=== PATIENT | female | born 1965 | race Caucasian/White ===

== ENCOUNTER 2022-03-21 12:29 | Outpatient (CLI) | payer BC, SELFPAY ==
--- NOTE | 2022-03-28 11:14 | P.SLS_ITS ---
Sleep Study Details Details Interpreting Provider: Vicente Argueta MD Date of Sleep Study: 03/21/22 Sleep Study Details: STUDY TYPE:? home sleep study ? BMI:? [] ORDERING PROVIDER:? Kendall INDICATION:? concerns about sleep apnea ? SLEEP SUMMARY:? monitor time 522 minute RESPIRATORY SUMMARY:? AHI overall 6.4, supine 40.4, prone 3.1, left lateral 8.5, right lateral 2.3, Low oxygen was 90% snores summary 11.8% PERIODIC LIMB MOVEMENTS OF SLEEP:? not applicable CARDIAC:? range 44 to 105, mean 54.9. IMPRESSION:? Mild obstructive sleep apnea overall. Worse in the supine and l eft lateral position. RECOMMENDATION: Treatment options include AutoSet CPAP at pressure of 4-17, dental appliance, and/or airway expansion surgery.
== END 2022-03-21 12:30 | disposition home or self-care (01) ==
LOC: SLEEP 12:31
PROVIDERS: PCP Family Medicine; Visit Provider Otolaryngology
DX: G47.33 Obstructive sleep apnea (adult) (pediatric) (principal)
CPT/HCPCS: 95806

== ENCOUNTER 2023-01-23 08:58 | Outpatient (CLI) | payer BC, SELFPAY ==
--- NOTE | 2023-01-23 09:15 | CRLHL7_ITS ---
For Patients: As a result of the Century Cures Act, medical imaging exams and procedure reports are released immediately into your electronic medical record. You may view this report before your referring provider. If you have questions, please contact your health care provider. BILATERAL SCREENING MAMMOGRAM WITH COMPUTER-AIDED DETECTION AND TOMOSYNTHESIS TECHNIQUE: CC and MLO views were obtained. These mammographic images have been obtained using full-field digital technique. These mammographic images were interpreted with the benefit of computer-aided detection. Breast tomosynthesis was used in this interpretation. COMPARISON FILM: 05/22/2018, 11/25/2020, 01/03/2022. FINDINGS: There are scattered areas of fibroglandular density. IMPRESSION: There is no radiographic evidence for malignancy. ASSESSMENT: BI-RADS Category 1: Negative RECOMMENDATION: Routine screening mammogram in 1 year. A lay language report of this examination will be provided to the patient. GREYSON ABREU M.D. Diagnostic Radiologist [email or web address] Transcribed: 3:[address]/Dictated by: Greyson Abreu MD @ 01/23/2023 12:16:00 PM (Electronically Signed)
== END 2023-01-23 08:59 | disposition home or self-care (01) ==
LOC: MAMMO 08:59
PROVIDERS: PCP Family Medicine; Visit Provider Obstetrics & Gynecology
DX: Z12.31 Encounter for screening mammogram for malignant neoplasm of breast (principal)
CPT/HCPCS: 77063; 77067

== ENCOUNTER 2023-03-26 09:17 | Outpatient (CLI) | payer BC, SELFPAY ==
[2023-03-26 10:54] LABS: Cholesterol* 226 mg/dL (90-199)
[2023-03-26 10:55] LABS: Glucose* 83 mg/dL (60-115); HDL Cholesterol* 105 mg/dL (>=50); LDL Cholesterol Calculated 96 mg/dL (<100); Triglycerides* 126 mg/dL (40-149)
== END 2023-03-26 09:18 | disposition home or self-care (01) ==
PROVIDERS: PCP Family Medicine; Visit Provider Obstetrics & Gynecology
DX: Z13.6 Encounter for screening for cardiovascular disorders (principal); Z13.1 Encounter for screening for diabetes mellitus; Z12.4 Encounter for screening for malignant neoplasm of cervix
CPT/HCPCS: 80061; 82947

== ENCOUNTER 2024-03-31 10:11 | Outpatient (CLI) | payer BC, SELFPAY | END 2024-03-31 10:12 | disposition home or self-care (01) | PROVIDERS: PCP Family Medicine; Visit Provider Obstetrics & Gynecology | DX: N90.89 Other specified noninflammatory disorders of vulva and perineum (principal) | CPT/HCPCS: 86694; 86695; 86696 ==

== ENCOUNTER 2024-04-11 08:45 | Outpatient (CLI) | payer BC, SELFPAY ==
--- NOTE | 2024-04-11 08:45 | CRLHL7_ITS ---
For Patients: As a result of the Century Cures Act, medical imaging exams and procedure reports are released immediately into your electronic medical record. You may view this report before your referring provider. If you have questions, please contact your health care provider. BILATERAL SCREENING MAMMOGRAM WITH COMPUTER-AIDED DETECTION AND TOMOSYNTHESIS TECHNIQUE: CC and MLO views were obtained. These mammographic images have been obtained using full-field digital technique. These mammographic images were interpreted with the benefit of computer-aided detection. Breast Tomosynthesis was used in this interpretation. COMPARISON FILM: 01/23/23, 01/03/22, 11/25/20. FINDINGS: There are scattered areas of fibroglandular density. IMPRESSION: There is no radiographic evidence for malignancy. ASSESSMENT: BI-RADS Category 1: Negative RECOMMENDATION: Routine screening mammogram in 1 year. A lay language report of this examination will be provided to the patient. Greyson Denton M.D. Diagnostic Radiologist [email or web address] SP/Dictated by: Greyson Denton MD @ 04/11/2024 11:56:00 AM (Electronically Signed)
== END 2024-04-11 08:46 | disposition home or self-care (01) ==
LOC: MAMMO 08:47
PROVIDERS: PCP Family Medicine; Visit Provider Obstetrics & Gynecology
DX: Z12.31 Encounter for screening mammogram for malignant neoplasm of breast (principal)
CPT/HCPCS: 77063; 77067

== ENCOUNTER 2024-07-15 08:49 | Outpatient (CLI) | payer BC, SELFPAY | END 2024-07-15 08:50 | disposition home or self-care (01) | LOC: NFLDREF 08:50 | PROVIDERS: PCP Family Medicine; Visit Provider Obstetrics & Gynecology | DX: R35.0 Frequency of micturition (principal); R30.0 Dysuria | CPT/HCPCS: 87086; 87186 ==

== ENCOUNTER 2025-04-28 10:10 | Outpatient (CLI) | payer BC, SELFPAY ==
--- NOTE | 2025-04-28 10:15 | CRLHL7_ITS ---
For Patients: As a result of the Century Cures Act, medical imaging exams and procedure reports are released immediately into your electronic medical record. You may view this report before your referring provider. If you have questions, please contact your health care provider. INDICATION: BILATERAL SCREENING MAMMOGRAM, ASYMPTOMATIC 59 Y/O FEMALE COMPARISON: 04/11/2024, 01/23/2023, 01/03/2022 TECHNIQUE: Digital mammogram in CC and MLO projections including computer-aided detection (CAD) and tomosynthesis. BREAST COMPOSITION: The breasts are heterogeneously dense, which may obscure small masses. FINDINGS: No suspicious findings. ASSESSMENT: BI-RADS 1 Negative RECOMMENDATION: Annual screening mammogram. A lay language report of this examination will be provided to the patient. Dictated by: Greyson Denton MD @ 04/29/2025 08:46:30 (Electronically Signed)
== END 2025-04-28 10:11 | disposition home or self-care (01) ==
LOC: MAMMO 10:11
PROVIDERS: PCP Family Medicine; Visit Provider Obstetrics & Gynecology
DX: Z12.31 Encounter for screening mammogram for malignant neoplasm of breast (principal); R92.333 Mammographic heterogeneous density, bilateral breasts
CPT/HCPCS: 77063; 77067

== ENCOUNTER 2025-04-29 08:53 | Outpatient (CLI) | payer BC, SELFPAY | END 2025-04-29 08:54 | disposition home or self-care (01) | LOC: NFLDREF 05-01 13:59 | PROVIDERS: PCP Family Medicine; Referring Provider Family Medicine; Visit Provider Obstetrics & Gynecology | DX: Z13.6 Encounter for screening for cardiovascular disorders (principal); Z13.1 Encounter for screening for diabetes mellitus | CPT/HCPCS: 80061 ==

== ENCOUNTER 2025-06-15 06:31 | Outpatient (CLI) | payer BC, SELFPAY ==
--- NOTE | 2025-06-15 08:02 | P.ANES_ITS ---
Anesthesia Charges Start Date/Time Anesthesia Start Date: 06/15/25 Anesthesia Start Time: 07:26 Stop Date/Time Anesthesia Stop Date: 06/15/25 Anesthesia Stop Time: 08:00 Coding CPT Codes CPT Codes: NARCISO LWR INTST SCR COLSC - 14052 ([id number]) P1 - NORMAL HEALTHY PATIENT, QX - SEARCH MANAGER SVPauline W/ MED DIRECTION, QK - LEAD CASTER 2-4 CNCRNT ANEYaya PROC
--- NOTE | 2025-06-15 08:02 | W.ANESCHARGE ---
Anesthesia Charges Start Date/Time Anesthesia Start Date: 06/15/25 Anesthesia Start Time: 07:26 Stop Date/Time Anesthesia Stop Date: 06/15/25 Anesthesia Stop Time: 08:00 Coding CPT Codes CPT Codes: NARCISO LWR INTST SCR COLSC - 98293 ([id number]) P1 - NORMAL HEALTHY PATIENT, QX - CONTINUOUS PROCESS TANNER ROTARY DRUM SVPauline W/ MED DIRECTION, QK - FARM EQUIPMENT TECHNICIAN 2-4 CNCRNT ANEYaya PROC
--- NOTE | 2025-06-15 09:03 | P.ANES_ITS ---
Anesthesia Charges Start Date/Time Anesthesia Start Date: 06/15/25 Anesthesia Start Time: 07:26 Stop Date/Time Anesthesia Stop Date: 06/15/25 Anesthesia Stop Time: 08:00 Coding CPT Codes CPT Codes: NARCISO LWR INTST SCR COLSC - 08692 ([id number]) P1 - NORMAL HEALTHY PATIENT, QK - FOOD SERVICE ASSISTANT 2-4 CNCRNT ANES PROC, QX - CAPTAIN AIRLINE PILOT SVC W/ MED DIRECTION
--- NOTE | 2025-06-15 09:03 | W.ANESCHARGE ---
Anesthesia Charges Start Date/Time Anesthesia Start Date: 06/15/25 Anesthesia Start Time: 07:26 Stop Date/Time Anesthesia Stop Date: 06/15/25 Anesthesia Stop Time: 08:00 Coding CPT Codes CPT Codes: NARCISO LWR INTST SCR COLSC - 50603 ([id number]) P1 - NORMAL HEALTHY PATIENT, QK - MANUFACTURING QUALITY INSPECTOR 2-4 CNCRNT ANES PROC, QX - ORTHOTIC PRACTITIONER SVC W/ MED DIRECTION
== END 2025-06-15 06:32 | disposition home or self-care (01) ==
LOC: OP CLINIC 06:35
PROVIDERS: PCP Family Medicine; Visit Provider Surgery
DX: Z12.11 Encounter for screening for malignant neoplasm of colon (principal); K57.30 Diverticulosis of large intestine without perforation or abscess without bleeding
CPT/HCPCS: 00812; 45378; J2704

== ENCOUNTER 2025-08-14 08:53 | Day surgery (SDC) | payer BC, SELFPAY ==
[2025-08-14] VITALS (12 sets, daily range): BP systolic 116–183; BP diastolic 78–101; PULSE 49–85; RESP 10–20; TEMP 36.2–36.5; O2SAT 95–98; BMI 26.8
[2025-08-14] MEDS: SODIUM CHLORIDE 0.9 % (FLUSH) 10 ML SYRINGE IVF (09:31)
[2025-08-14] MEDS: LACTATED RINGERS 1000 ML 1,000 ML 100 ML IV (09:31)
[2025-08-14] MEDS: OXYMETAZOLINE 0.05% NASAL SPRAY 2 SPRAY NOSTRIL-B (09:35)
[2025-08-14] MEDS: AYR SALINE NASAL GEL 1 APPLIC NOSTRIL-B (11:12)
[2025-08-14] MEDS: MUPIROCIN 1 GM PACKET 1 APPLIC TOPICAL (11:12)
[2025-08-14] MEDS: BUPIVACAINE 0.5%/EPINEPHRINE 0.9 MG (30.9 ML) INJECTION (11:21)
--- NOTE | 2025-08-14 11:23 | W.PM.ENTPROC ---
Procedure Note Date of procedure: 08/14/25 Procedure: Preop diagnosis nasal obstruction, deviated septum, left inferior turbinate hypertrophy Postop same Procedure nasal septoplasty, submucous partial resection left inferior turbinate Under general trach anesthesia patient was prepped draped usual fashion nose decongested injected. A right hemitransfixion incision was made left anterior and posterior tunnels were created. A vertical incision was made through the cartilage anterior to the bony cartilaginous junction and a right posterior tunnel created. The posterior deflected portions of septal bone resected a large piece trimmed returned to intraseptal space. The anterior septum simply moved to midline. The hemitransfixion was closed with 2 4-0 chromic sutures The left inferior turbinate was then addressed. A stab incision was made anteriorly and tunnel created with a Sherri dissector. The james bone was outfractured a conservative anterior submucous resection performed. The Coblation was used for hemostasis and to cauterize intramurally along the inferior 10%. Silastic stents were secured with 3-0 nylon and Merocel packing was placed above the stents on each side. The patient procedure was taken recovery in satisfactory condition blood loss less than 10 mL. Surgeon: Vicente Argueta MD
--- NOTE | 2025-08-14 11:34 | P.ANES_ITS ---
Anesthesia Charges Start Date/Time Anesthesia Start Date: 08/14/25 Anesthesia Start Time: 10:52 Stop Date/Time Anesthesia Stop Date: 08/14/25 Anesthesia Stop Time: 11:34 Coding CPT Codes CPT Codes: ANESTH PROCEDURE ON MOUTH - 34592 ([id number]) P1 - NORMAL HEALTHY PATIENT, QK - DIMENSIONAL INSPECTOR 2-4 CNCRNT ANES PROC, QX - WALNUT DEHYDRATOR OPERATOR SVPauline W/ MED DIRECTION
--- NOTE | 2025-08-14 11:34 | W.ANESCHARGE ---
Anesthesia Charges Start Date/Time Anesthesia Start Date: 08/14/25 Anesthesia Start Time: 10:52 Stop Date/Time Anesthesia Stop Date: 08/14/25 Anesthesia Stop Time: 11:34 Coding CPT Codes CPT Codes: ANESTH PROCEDURE ON MOUTH - 29435 ([id number]) P1 - NORMAL HEALTHY PATIENT, QK - PREDATORY ANIMAL EXTERMINATOR 2-4 CNCRNT ANES PROC, QX - THERMOSTAT MACHINE TENDER SVPauline W/ MED DIRECTION
--- NOTE | 2025-08-14 11:44 | P.ANES_ITS ---
Anesthesia Charges Start Date/Time Anesthesia Start Date: 08/14/25 Anesthesia Start Time: 10:52 Stop Date/Time Anesthesia Stop Date: 08/14/25 Anesthesia Stop Time: 11:34 Coding CPT Codes CPT Codes: ANESTH NOSE/SINUS SURGERY - 63692 ([id number]) P1 - NORMAL HEALTHY PATIENT, QK - FIRE DEPARTMENT BATTALION CHIEF 2-4 CNCRNT ANES PROC, QX - TERRITORY DEVELOPMENT MANAGER SVPauline W/ MED DIRECTION
--- NOTE | 2025-08-14 11:44 | W.ANESCHARGE ---
Anesthesia Charges Start Date/Time Anesthesia Start Date: 08/14/25 Anesthesia Start Time: 10:52 Stop Date/Time Anesthesia Stop Date: 08/14/25 Anesthesia Stop Time: 11:34 Coding CPT Codes CPT Codes: ANESTH NOSE/SINUS SURGERY - 54311 ([id number]) P1 - NORMAL HEALTHY PATIENT, QK - INTERNAL MEDICINE VETERINARY TECHNICIAN 2-4 CNCRNT ANES PROC, QX - CHIROPRACTIC PHYSICIAN SVPauline W/ MED DIRECTION
--- NOTE | 2025-08-14 12:04 | SUR.PHASEI ---
patient met discharge criteria per anesthesia
--- NOTE | 2025-08-14 12:22 | SUR.PHASEII ---
Pt with redness to bilateral eyelids after surgery. Likely sensitive to the tape that was used. Cold washcloth applied for comfort. Continue to monitor.
== END 2025-08-14 13:33 | disposition home or self-care (01) ==
LOC: OR 08:54
PROVIDERS: PCP Family Medicine; Visit Provider Otolaryngology
PROC: (CPT 30520; principal; 2025-08-14 10:30)
DX: J34.2 Deviated nasal septum (principal); J34.3 Hypertrophy of nasal turbinates; J34.89 Other specified disorders of nose and nasal sinuses
CPT/HCPCS: 30520; 30140; 00160; 00170; A9270; J0330; J1100; J2250; J2405; J2704; J2710; J3010; J3490; J7120